=== PATIENT | male | born 2005 | race Caucasian/White ===

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

== ENCOUNTER 2023-07-06 10:32 | Emergency (ER) | payer BC ==
[~2023-07-06] VITALS: Ht 198.1 cm; Wt 85.9 kg
[2023-07-06 10:37] VITALS: TEMP 98.3
[2023-07-06] MEDS ORDERED: ZOVIRAX400 MG PO (10:42)
[2023-07-06] MEDS ORDERED: LIDOCAINE HCL100 M1 MM (10:43)
[2023-07-06] MEDS ORDERED: Lidocaine 2% Viscous 15 ML UNIT DOSE MM ONE (11:15)
[2023-07-06] MEDS ORDERED: Mag/Al Hydrox/Simeth Susp 30 ML CUP PO ONE (11:15)
[2023-07-06] MEDS ORDERED: MAGIC MOUTH PO (11:17)
[2023-07-06 11:32] VITALS: BP 133/76; PULSE 98
== END 2023-07-06 11:32 | disposition home or self-care (01) ==
LOC: COL.ER 10:32
DX: B00.9 Herpesviral infection, unspecified (principal)